=== PATIENT | male | born 1940 | race Two or more races ===

== ENCOUNTER 2018-01-20 15:22 | Emergency (ER) | payer OTHER ==
[~2018-01-20] VITALS: Ht 180.3 cm; Wt 96.2 kg
[~2018-01-20 15:22] MED LIST: DICY20TA; PRILOSEC20 MG; SYMBICORT 80/10.2 GM; TAMBOCOR50 MG; TOPROL XL25 M1
== END 2018-01-20 22:47 | disposition home or self-care (01) ==
LOC: ER 15:22
DX: K62.5 Hemorrhage of anus and rectum (principal); N39.0 Urinary tract infection, site not specified; R31.0 Gross hematuria; K80.80 Other cholelithiasis without obstruction

== ENCOUNTER 2023-05-18 13:22 | Emergency (ER) | payer OTHER ==
[~2023-05-18] VITALS: Ht 177.8 cm; Wt 94.3 kg
[2023-05-18] MEDS ORDERED: XARELTO20 M1 PO (14:10)
[2023-05-18] MEDS ORDERED: SINGULAIR10 MG PO (14:10)
[2023-05-18] MEDS ORDERED: COZAAR100 MG PO (14:10)
[2023-05-18] MEDS ORDERED: NORVASC2.5 MG PO (14:11)
[2023-05-18] MEDS ORDERED: FENOFIBRATE50 MG (14:12)
== END 2023-05-18 17:57 | disposition home or self-care (01) ==
LOC: ER 13:23
PROVIDERS: Emergency Medicine
DX: R41.0 Disorientation, unspecified (principal); I48.91 Unspecified atrial fibrillation; I49.8 Other specified cardiac arrhythmias; I10 Essential (primary) hypertension; E78.00 Pure hypercholesterolemia, unspecified
CPT/HCPCS: 36415; 96365; 99284; J3490